=== PATIENT | male | born 1980 | race Caucasian/White ===

== ENCOUNTER 2017-04-29 10:54 | Emergency (ER) | payer BC ==
--- NOTE | 2017-05-17 15:51 | ER ---
ADMIT: 04/29/2017 RM/LOC: ER [facility] MR#: [id number] [facility] [id number] [place] [id number] [facility] NIGHAT PARR [id number] Emergency Room Report SEX: M AGE: 36 : 1980 DATE: 04/29/2017 This 36-year-old fell off a ladder while working on a pivot. His history was extremely confusing. Nature of his complaints and the events that occurred changed several times. See T-sheet for remainder history and physical. He was diagnosed with a contusion of the foot. X-rays of the chest and foot were negative. He is given a prescription for Toradol and instructed to follow up as needed with his primary doctor. Brad Merritt MD/ qi JOB #: [id number] CC: Brad Merritt MD, Attending Physician Fuad Selby MD, Family Physician
== END 2017-04-29 12:18 | disposition home or self-care (01) ==
LOC: ER 10:54
DX: S90.31XA Contusion of right foot, initial encounter (principal); W11.XXXA Fall on and from ladder, initial encounter; Y92.69 Other specified industrial and construction area as the place of occurrence of the external cause; Y99.0 Civilian activity done for income or pay